=== PATIENT | female | born 1945 | race African-American/Black ===

== ENCOUNTER 2017-10-10 02:12 | Emergency (ER) | payer OTHER ==
[~2017-10-10] VITALS: Ht 157.5 cm; Wt 97.0 kg
[~2017-10-10 02:12] MED LIST: 1-ME1LIQ PO; ALLO300T2 PO; COLC1TAB7 PO; CORTI10A AD; GLIP1TAB18 PO; GLUCTAB PO; HYDR12.56 PO; LOVA1TAB47 PO; METO100T PO; TRAD5TAB PO
[2017-10-10 02:14] VITALS: BP 185/89; PULSE 105; RESP 16; TEMP 99.8; O2SAT 96
[2017-10-10] MEDS ORDERED: HYDR12.57 PO (03:55)
[2017-10-10] MEDS ORDERED: METF500T PO (03:55)
[2017-10-10] MEDS ORDERED: METO100T PO (03:55)
[2017-10-10] MEDS ORDERED: [UNRECOGNIZED DRUG - OTHER] (03:59)
[2017-10-10] MEDS ORDERED: ALLO300T2 PO (03:59)
[2017-10-10] MEDS ORDERED: LOVA40TA PO (03:59)
--- NOTE | 2017-10-10 04:58 | PD ---
HPI Chief Complaint: Cold / Flu Symptoms Time Seen by Provider: 04:46 Travel History International Travel<30 days: No Contact w/Intl Traveler<30days: No Traveled to known affect area: No History of Present Illness HPI 71-year-old black female presents to emergency department for evaluation of fever and chills. She states that she became ill earlier this evening. She states that she had shaking from the fever. She has had some runny nose, congestion and cough. Increased urinary frequency but no dysuria. Positive nausea. She denies any vomiting. No abdominal pain or diarrhea. Symptoms were moderate but improved now. PFSH Past Medical History Arthritis: No Asthma: No Autoimmune Disease: No Blood Disorders: No Anxiety: No Depression: No Heart Rhythm Problems: No Cancer: No Cardiac Catheterization: No Cardiovascular Problems: No High Cholesterol: Yes Chemotherapy: No Chest Pain: Yes Congestive Heart Failure: No COPD: Yes Cerebrovascular Accident: No Diabetes: Yes Patient Takes Glucophage: Yes Diminished Hearing: No Endocrine: Yes GERD: No Glaucoma: No Gout: Yes Genitourinary: No Headaches: No Hepatitis: No Hiatal Hernia: No Hypertension: Yes Immune Disorder: No Kidney Stones: No Musculoskeletal: No Neurologic: No Psychiatric: No Respiratory: Yes Myocardial Infarction: No Radiation Therapy: No Renal Failure: No Seizures: No Sickle Cell Disease: No Sleep Apnea: No Thyroid Disease: No Ulcer: No Tetanus Vaccination: < 5 Years ?: Not Menopausal: Yes Past Surgical History Abdominal Surgery: No AICD: No Cardiac Surgery: No Cholecystectomy: Yes Coronary Artery Bypass Graft: No Ear Surgery: No Endocrine Surgery: No Eye Surgery: No Genitourinary Surgery: No Gynecologic Surgery: Yes (HYSTERECTOMY) Hysterectomy: Yes (20 YRS AGO) Joint Replacement: No Oral Surgery: No Pacemaker: No Thoracic Surgery: No Other Surgery: Yes Social History Alcohol Use: No Tobacco Use: No Substance Use: No Allergies-Medications (Allergen,Severity, Reaction): Coded Allergies: enalapril (Verified Allergy, Unknown, 10/10/17) lisinopril (Unverified Adverse Reaction, Mild, COUGH, 10/10/17) Reported Meds & Prescriptions Reported Meds & Active Scripts Active Keflex (Cephalexin) 500 Mg Cap 1,000 Mg PO Q12H 7 Days Reported [roglitozone] 45 DAILY Allopurinol 300 Mg Tab 300 Mg PO DAILY Lovastatin 40 Mg Tab 40 Mg PO DAILY Metoprolol Tartrate 100 Mg Tab 100 Mg PO DAILY Hydrochlorothiazide 12.5 Mg Cap 12.5 Mg PO DAILY Allopurinol 300 Mg Tab 300 Mg PO DAILY Review of Systems Except as stated in HPI: all other systems reviewed are Neg Physical Exam Narrative GENERAL: Well-developed, well-nourished in no acute distress. Nontoxic appearing. HEAD: Normocephalic, atraumatic. EYES: Pupils equal round and reactive. Extraocular motions intact. No scleral icterus. No injection or drainage. ENT: TMs clear without erythema. The external auditory canals clear. Nose: clear . Posterior pharynx is pink and moist. No tonsillar edema or exudate. Uvula midline. Airway patent. NECK: Trachea midline.Supple, nontender, moves head freely. No central bony tenderness or spasm. CARDIOVASCULAR: Regular rate and rhythm without murmurs, gallops, or rubs. RESPIRATORY: Clear to auscultation. Breath sounds equal bilaterally. No wheezes , rales, or rhonchi. GASTROINTESTINAL: Abdomen soft, non-tender, obese. No hepato-splenomegaly, or palpable masses. No guarding. EXTREMITIES: No clubbing, cyanosis, or edema. No joint tenderness, effusion, or edema noted. BACK: Nontender without deformity or crepitance. No flank tenderness. Data Data Last Documented VS Vital Signs Date Time Temp Pulse Resp B/P (MAP) Pulse Ox O2 Delivery O2 Flow Rate FiO2 10/10/17 02:14 99.8 105 16 185/89 (121) 96 Room Air Orders Orders Influenzae A/B Antigen (10/10/17 04:53) Urinalysis - C+S If Indicated (10/10/17 04:53) Acetaminophen (Tylenol) (10/10/17 05:00) Urine Culture (10/10/17 02:10) Cephalexin (Keflex) (10/10/17 05:45) Labs Laboratory Tests Test 10/10/17 02:10 Urine Color YELLOW Urine Turbidity HAZY Urine pH 6.5 Urine Specific [place] 1.016 Urine Protein TRACE mg/dL Urine Glucose (UA) NEG mg/dL Urine Ketones NEG mg/dL Urine Occult Blood NEG Urine Nitrite NEG Urine Bilirubin NEG Urine Urobilinogen LESS THAN 2.0 MG/DL Urine Leukocyte Esterase MOD Urine RBC 6 /hpf Urine WBC 14 /hpf Urine Squamous Epithelial Cells 21 /hpf Urine Transitional Epithelial Cells <1 /hpf Urine Bacteria MOD /hpf Urine Mucus FEW /lpf Microscopic Urinalysis Comment CULTURE INDICATED MDM Medical Decision Making Medical Screen Exam Complete: Yes Emergency Medical Condition: Yes Medical Record Reviewed: Yes Interpretation(s) Influenza: Negative UA: Positive leukocytes and bacteria although there is a large amount of squamous cells this may just be contamination. The patient will be treated with Keflex. Differential Diagnosis MDM: High Differential diagnoses: Pneumonia, bronchitis, URI, influenza, UTI Narrative Course We will obtain a flu swab and a urinalysis. Patient is given Tylenol 650 mg by mouth. By mouth challenge. Diagnosis Primary Impression: UTI Additional Impression: URI Patient Instructions: General Instructions Additional Instructions: Rest. Increase fluids. Tylenol for any fever chills. Keflex. Follow-up with a medical doctor next 2-3 days for recheck. Return to the ER for any problems. Med/Other Pt SpecificInfo: Prescription(s) given Scripts Cephalexin (Keflex) 500 Mg Cap 1000 MG PO Q12H for Infection for 7 Days, #28 CAP 0 Refills Prov: Keri Fernandez MD 10/10/17 Disposition: 01 DISCHARGE HOME Condition: Stable Gurwinder Tamayo Oct 10, 2017 04:57
[2017-10-10] MEDS ORDERED: ACETAMINOPHEN 325 MG TAB PO ONE (05:00)
[2017-10-10 05:30] LABS: BACTERIA, URINE MOD /hpf; BILIRUBIN, URINE NEG (NEG); BLOOD, URINE NEG (NEG); GLUCOSE,URINE NEG (NEG); KETONE, URINE NEG (NEG); MUCUS URINE FEW /lpf (OCC); NITRITE,URINE NEG (NEG); PH, URINE 6.5 (5.0-8.5); SQUAMOUS EPITHELIAL CELL URINE 21 /hpf (0-5); TRANSITIONAL EPI CELLS, URINE <1 /hpf; URINE COLOR YELLOW (YELLW/STRAW); URINE LEUKOCYTE ESTERASE MOD (NEG)
[2017-10-10] MEDS ORDERED: CEPHALEXIN MONOHYDRATE 500 MG CAP PO ONE (05:45)
[2017-10-10] MEDS ORDERED: CEPH-460 PO (05:47)
[2017-10-13] MEDS ORDERED: ACTO45TA15 PO (10:42)
== END 2017-10-10 06:30 | disposition home or self-care (01) ==
LOC: NEPD 02:12
DX: N39.0 Urinary tract infection, site not specified (principal); J06.9 Acute upper respiratory infection, unspecified; E78.00 Pure hypercholesterolemia, unspecified; I10 Essential (primary) hypertension; M10.9 Gout, unspecified
CPT/HCPCS: 81001; 87086; 87804; 99283